=== PATIENT | female | born 1970 | race Asian ===

== ENCOUNTER 2017-05-09 12:15 | Emergency (ER) | payer MEDICAID ==
[~2017-05-09] VITALS: Ht 157.5 cm; Wt 50.8 kg
[2017-05-09 12:21] VITALS: BP 126/87
== END 2017-05-09 15:40 | disposition home or self-care (01) ==
LOC: ER 12:15
DX: S80.811A Abrasion, right lower leg, initial encounter (principal); W54.0XXA Bitten by dog, initial encounter; Y93.89 Activity, other specified; Y92.89 Other specified places as the place of occurrence of the external cause; Y99.8 Other external cause status

== ENCOUNTER → 2019-07-27 | Emergency (ER) | payer MEDICAID ==
[~2019-07-27] VITALS: Ht 157.5 cm; Wt 52.2 kg
[2019-07-27 14:38] VITALS: BP 138/97
== END | disposition home or self-care (01) ==
LOC: ER 13:37
DX: J20.9 Acute bronchitis, unspecified (principal)
CPT/HCPCS: 71046; 87804